=== PATIENT | male | born 1980 | race Caucasian/White ===

== ENCOUNTER 2020-12-02 09:16 | Emergency (ER) | payer SELFPAY ==
[2020-12-02 09:55] LABS: INR-International Normal Ratio 0.9; Prothrombin Time 12.8 sec (12.0-14.7)
[2020-12-02 09:56] LABS: PTT 25.3 sec (22.9-36.1)
[2020-12-02 10:08] LABS: ALT (SGPT) 72 U/L (8-55); AST (SGOT) 199 U/L (5-34); Albumin 4.3 g/dL (3.5-5.0); Alkaline Phosphatase 103 U/L (40-110); Anion Gap 17 mmol/L (10-20); BUN (Urea Nitrogen) 6 mg/dL (8.9-20.6); Calc. Creatinine Clearance 0 mL/min (70-130); Calcium 8.8 mg/dL (7.8-10.44); Carbon Dioxide 23 mmol/L (22-29); Chloride 102 mmol/L (98-107); Globulin 3.2 g/dL (2.4-3.5); Glucose 98 mg/dL (70-105); Potassium 3.7 mmol/L (3.5-5.1); Protein, Total 7.5 g/dL (6.0-8.3); Sodium 138 mmol/L (136-145)
[2020-12-02 10:27] LABS: #Basophils 0.1 thou/uL (0.0-0.2); #Eosinphils 0.2 thou/uL (0.0-0.7); #Lymphocytes 1.2 thou/uL (1.20-3.40); #Monocytes 0.8 thou/uL (0.11-0.59); %Basophils 1.4 % (0.0-1.0); %Eosinophils 2.9 % (0.0-10.0); %Lymphocytes 23.3 % (21.0-51.0); %Monocytes 14.5 % (0.0-10.0); %Neutrophils 57.9 % (42.0-75.0); Band 3 % (5-11); Eosinophils 3 % (0-10); Hemoglobin 14.7 g/dL (14.0-18.0); Lymphocytes 36 % (21-51); MDiff Complete? YES; Macrocytosis SLIGHT = 6-15 cells (100X) (0-5/hpf); Mean Corpuscular HGB CONC 32.8 g/dL (32.0-36.0); Mean Corpuscular Hemoglobin 35.7 pg (27.0-31.0); Mean Platelet Volume 7.9 fL (7.4-10.4); Monocytes 3 % (0-10); Neutrophil 55 % (42-75); Platelet Count 81 thou/uL (130-400); Platelet Morphology Comment Appears Decreased; RBC Distribution Width 11.4 % (11.5-14.5); Red Blood Cell (RBC) Count 4.13 mill/uL (4.70-6.10); White Blood Cell (WBC) Count 4.7 thou/uL (4.8-10.8)
== END 2020-12-02 11:33 | disposition home or self-care (01) ==
LOC: ERS 09:16
DX: D69.6 Thrombocytopenia, unspecified (principal); F10.20 Alcohol dependence, uncomplicated; F17.290 Nicotine dependence, other tobacco product, uncomplicated; I10 Essential (primary) hypertension; Z79.899 Other long term (current) drug therapy
CPT/HCPCS: 36415; 80053; 85025; 85379; 85610; 85730; 86850; 86900; 86901; 99283